=== PATIENT | female | born 1985 | race African-American/Black ===

== ENCOUNTER 2017-11-08 09:42 | Inpatient (IN) ==
[2017-11-08] MEDS ORDERED: BUTORPHANOL 2 MG/ML VIAL IV PRN (10:15)
[2017-11-08] MEDS ORDERED: ONDANSETRON 4 MG/2 ML VIAL IV PRN (10:15)
[2017-11-08] MEDS ORDERED: MEPERIDINE 50 MG/1 ML VIAL IM PRN (10:15)
[2017-11-08] MEDS ORDERED: LACTATED RINGERS 1,000 ML IV SCH (10:30)
[2017-11-08 10:58] LABS: Basophils % 0.3 % (0.0-0.8); Eosinophils % 0.3 % (0.00-10.9); Hemoglobin 12.3 GM/DL (12.0-16.0); Immature Granulocytes % 0.7 %; Immature Granulocytes Absolute 0.05 #; Lymphocytes # 1.8 10*3/uL (1.4-4.0); Lymphocytes % 26.4 % (21.3-54.2); Mean Corpuscular HGB Conc 31.5 GM/DL (32-36); Mean Corpuscular Hemoglobin 26 PG (27-34); Mean Corpuscular Volume 83.5 FL (87-102); Mean Platelet Volume 12.2 FL (9.6-12.0); Monocytes # 0.5 10*3/uL (0.11-0.8); Monocytes % 6.7 % (1.7-12.7); Neutrophils # 4.4 10*3/uL (1.4-7.4); Neutrophils % 65.6 % (38.7-73.9); Platelet Count 190 T/CUMM (130-400); Red Blood Count 4.67 MC/CUMM (3.8-5.5); Red Cell Distribution Width 13.8 % (9.3-17.3); White Blood Count 6.7 T/CUMM (4-12)
[2017-11-08] MEDS: OXYTOCIN/LR 20 UNIT/1,000 ML BAG IV SCH ×2 (11:00→15:22)
[2017-11-08] MEDS ORDERED: DIPH/TET/ACEL PERT BOOSTER VACCINE 0.5 ML VIAL IM ONE (14:38)
[2017-11-08] MEDS ORDERED: RHO(D) IMMUNE GLOBULIN 300 MCG SYRINGE IM ONE (14:38)
[2017-11-08] MEDS ORDERED: ACETAMINOPHEN 325 MG TABLET PO PRN (14:38)
[2017-11-08] MEDS ORDERED: BISACODYL 10 MG SUPP RECTAL PRN (14:38)
[2017-11-08] MEDS ORDERED: oxyCODONE/ACETAMINOPHEN 5-325 MG TABLET PO PRN ×2 (14:38)
[2017-11-08] MEDS ORDERED: WITCH HAZEL PADS 100/JAR TOP PRN (14:38)
[2017-11-08] MEDS ORDERED: BENZOCAINE 20%/MENTHOL 0.5% SPRAY 56 GM CAN TOP PRN (14:38)
[2017-11-08] MEDS ORDERED: HYDROCORTISONE 2.5% RECTAL CREAM 30 GM TUBE TOP PRN (14:38)
[2017-11-08] MEDS ORDERED: LANOLIN 50% CREAM 0.3 OZ TUBE TOP PRN (14:38)
[2017-11-08] MEDS ORDERED: MEASLES/MUMPS/RUBELLA VACCINE 0.5 ML VIAL SUBCUT ONE (14:38)
[2017-11-08 14:57] LABS: Cord Venous Blood HCO3 22.3 MMOL/L; Cord Venous Blood PCO2 36.7 MMHG; Cord Venous Blood PO2 39.4
[2017-11-08] MEDS: IBUPROFEN 800 MG TABLET PO PRN (15:23)
[2017-11-08] MEDS ORDERED: ACETAMINOPHEN/CODEINE 300-30 MG TABLET PO PRN (18:09)
[2017-11-08] MEDS: DOCUSATE SODIUM 100 MG CAPSULE PO SCH (21:44)
[2017-11-09] MEDS: DOCUSATE SODIUM 100 MG CAPSULE PO SCH ×2 (08:58→22:34)
[2017-11-09 18:52] LABS: Basophils % 0.2 % (0.0-0.8); Eosinophils # 0.2 10*3/uL (0.0-0.87); Eosinophils % 2.1 % (0.00-10.9); Hematocrit 34.7 VOL% (35.7-47.0); Hemoglobin 11.2 GM/DL (12.0-16.0); Immature Granulocytes % 0.5 %; Immature Granulocytes Absolute 0.04 #; Lymphocytes # 2.9 10*3/uL (1.4-4.0); Lymphocytes % 33.9 % (21.3-54.2); Mean Corpuscular HGB Conc 32.3 GM/DL (32-36); Mean Corpuscular Hemoglobin 27 PG (27-34); Mean Corpuscular Volume 83.8 FL (87-102); Mean Platelet Volume 12.2 FL (9.6-12.0); Monocytes # 0.7 10*3/uL (0.11-0.8); Monocytes % 8.3 % (1.7-12.7); Neutrophils # 4.8 10*3/uL (1.4-7.4); Platelet Count 196 T/CUMM (130-400); Red Blood Count 4.14 MC/CUMM (3.8-5.5); White Blood Count 8.7 T/CUMM (4-12)
[2017-11-10 08:11] VITALS: BP 92/56
[2017-11-10] MEDS: DOCUSATE SODIUM 100 MG CAPSULE PO SCH (08:45)
[2017-11-10] MEDS: IBUPROFEN 800 MG TABLET PO PRN (08:45)
== END 2017-11-10 12:35 | disposition home or self-care (01) | DRG 560 ==
LOC: N.LDOUT 09:42 → N.LD 09:44 → N.OB 18:07
PROVIDERS: ADMIT Obstetrics & Gynecology; ATTEND Obstetrics & Gynecology